=== PATIENT | female | born 1980 | race Caucasian/White ===

== ENCOUNTER 2016-09-22 12:04 | Emergency (ER) | payer OTHER ==
[~2016-09-22] VITALS: Ht 160 cm; Wt 57.6 kg
--- NOTE | ~2016-09-22 | CR63 ---
[facility]. [facility] A Service of [facility] & [facility] RADIOLOGY TEXT RESULTS PATIENT: YANIRA BRICE LOCATION: SED : 78 UNIT #: [id number] AGE: [address]: Luther Doan MD SEX: F ORDER DR: [id number] [place] [id number] E MR#: [id number] Acc #: [id number] NAME: YANIRA BRICE. : 1980 SEX: F STUDY DATE/TIME: 09/22/2016 13:35 UNIT: SED ROOM: STUDY DESCRIPTION: CR Chest 2 View Attending Physician: Luther Doan M.D. Ordering Physician: Luther Doan M.D. Primary Care Physician: Ajit Martins M.D. MEDICAL IMAGING REPORT This report is preliminary unless electronic signature is present. EXAM Chest 2 views, 09/22/2016, 1335 hours. CLINICAL HISTORY 36-year-old woman complaining of cough since yesterday after vomiting. COMPARISON 02/19/2014 FINDINGS Upright PA and lateral views of the chest demonstrate normal cardiac, mediastinal and hilar contours. Lungs are hyperinflated but clear. No effusions. IMPRESSION Lungs are hyperinflated but clear. No effusions seen. Dictated by... Nathalia Franks M.D. THIS IS AN ELECTRONICALLY VERIFIED REPORT Nathalia Franks M.D. at 09/23/2016 9:33 AM Julissa TD: 09/22/2016 18:36 JOB #: [id number] MEDICAL IMAGING REPORT Page 1 of 1
--- NOTE | ~2016-09-22 | CT4 ---
[facility] A Service [facility] RADIOLOGY TEXT RESULTS PATIENT: YANIRA BRICE LOCATION: SED : [birth year] UNIT #: [id number] AGE: [address]: Luther Doan MD SEX: F ORDER DR: [id number] [place] [id number] E MR#: [id number] Acc #: [id number] NAME: YANIRA BRICE. : 1980 SEX: F STUDY DATE/TIME: 09/22/2016 13:49 UNIT: SED ROOM: STUDY DESCRIPTION: CT Abd and Pelv Wo Cont Attending Physician: Luther Doan M.D. Ordering Physician: Luther Doan M.D. Primary Care Physician: Ajit Martins M.D. MEDICAL IMAGING REPORT This report is preliminary unless electronic signature is present. EXAM CT abdomen and pelvis INDICATIONS Nausea, vomiting and diarrhea for [address] abdomen and pelvis without contrast. Coronal and sagittal reconstructions were obtained. This CT exam was performed with one or more of the following radiation dose reduction techniques: Automatic exposure control, adjustment of mA and/or kV according to patient size, and iterative reconstruction. COMPARISON CT abdomen and pelvis 02/09/2011. FINDINGS ABDOMEN: No urinary calculi. No hydronephrosis. 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 Noncontrast evaluation of the remaining solid abdominal organs are within normal limits. The gallbladder is not distended. The bowel is not dilated. Appendix is normal. PELVIS: The bladder is unremarkable. The uterus is surgically absent. Ovaries are within normal limits. No acute osseous abnormalities. IMPRESSION 1. No acute findings in the abdomen and pelvis. 2. Incidental note of a horseshoe kidney. [facility] A Service [facility] RADIOLOGY TEXT RESULTS PATIENT: YANIRA BRICE LOCATION: SED : 79 UNIT #: [id number] AGE: [address]: Luther Doan MD SEX: F ORDER DR: Dictated by... Aaron Rojas M.D. THIS IS AN ELECTRONICALLY VERIFIED REPORT Aaron Rojas M.D. at 09/23/2016 2:50 PM RPC/anette TD: 09/22/2016 20:38 JOB #: [id number] MEDICAL IMAGING REPORT Page 1 of 1
[~2016-09-22 12:04] MED LIST: ADVAIR 2501 DISK W/D PO; ALBUTEROL MININEB NEB; ALBUTEROL0.83 MG/ML IH; ALBUTEROL17 GM INH; BACTRIM DS TABL1 TA1 PO; ERY-TAB500 MG PO; LIDOCAINE TOP; MEDROL PO; MIRALAX; NAPROXEN PO; NO MEDICATIONS; NORCO1 TAB 10/3 PO; PREDNISONE PO; RONDEC-DM SYRU120 ML PO; TAMIFLU75 M1 PO; ULTRAM PO; VIBRAMYCIN100 M1 PO; VOLTAREN50 MG PO; ZITHROMAX PO; [UNRECOGNIZED DRUG - OTHER]; [UNRECOGNIZED DRUG - OTHER] TOP
[2016-09-22 12:48] LABS: BASOPHIL# 0.1 X10e3 (0-0.3); EOSINOPHIL# 0.1 X10e3 (0-0.7); EOSINOPHIL% 2.2 % (0.0-7.0); HEMATOCRIT 43.2 % (35.0-45.0); HEMOGLOBIN 15.2 gm/dL (12.0-16.0); LYMPHOCYTE# 1.8 X10e3 (1.0-3.5); LYMPHOCYTE% 31.1 % (17.0-45.0); MEAN CELL VOLUME 87.4 FL (83-96); MEAN CORPUSCULAR HEMOGLOBIN 30.9 PG (28-34); MEAN CORPUSCULAR HGB CONC 35.3 g/dL (30-36); MEAN PLATELET VOLUME 7.7 FL (6.5-11.5); MONOCYTE# 0.4 X10e3 (0-1.0); MONOCYTE% 6.5 % (3.0-12.0); NEUTROPHIL# 3.5 X10e3 (1.5-7.1); NEUTROPHIL% 59.2 % (40-75); PLATELET COUNT 188 X10e3 (140-420); RED BLOOD COUNT 4.94 X10e (3.90-5.30); RED CELL DISTRIBUTION WIDTH 12.7 % (11.0-15.5); WHITE BLOOD COUNT 5.9 X10e3 (4.0-10.5)
[2016-09-22 12:49] LABS: MICRO INDICATED? YES; URINE APPEARANCE CLEAR; URINE BILIRUBIN NEG (NEG); URINE BLOOD 1+ (NEG); URINE COLOR YELLOW; URINE GLUCOSE NEG (NORM); URINE KETONE NEG (NEG); URINE LEUKOCYTE ESTERASE NEG (NEG); URINE NITRATE NEG (NEG); URINE PH 5.5 (5-8); URINE PROTEIN NEG (NEG); URINE SOURCE CLEAN CATCH; URINE SPECIFIC GRAVITY <=1.005 (1.003-1.035); URINE UROBILINOGEN 0.2 MG/DL (NORM)
[2016-09-22 12:52] LABS: CULTURE INDICATED? YES; URINE BACTERIA 1+ (NEG); URINE SQUAMOUS EPITHELIAL CELL MODERATE /[HPF]
[2016-09-22 12:54] LABS: DIFF IND NO
[2016-09-22 12:59] LABS: ALBUMIN SERUM 4.4 g/dL (3.5-5.0); BILIRUBIN,TOTAL 0.9 mg/dL (0.2-2.0); BUN/CREATININE RATIO 13.33; CALCIUM SERUM 9.2 mg/dL (8.4-10.2); CREATININE SERUM 0.6 mg/dL (0.6-1.4); GLOM FILT RATE Estimated 116.4 mL/min (>60); POTASSIUM 3.8 mmol/L (3.5-5.1); PROTEIN TOTAL SERUM 7.3 g/dL (6.0-8.3)
== END 2016-09-22 15:40 | disposition home or self-care (01) ==
LOC: SED 12:04
PROVIDERS: Emergency Medicine
DX: K52.9 Noninfective gastroenteritis and colitis, unspecified (principal); J20.9 Acute bronchitis, unspecified; F17.210 Nicotine dependence, cigarettes, uncomplicated
CPT/HCPCS: 36415; 71020; 74176; 80053; 81003; 82150; 83690; 85025; 87086; 94640; 96361; 96374; 96375; 99284; C9113; J1885; J2405